=== PATIENT | female | born 1980 ===

== ENCOUNTER 2018-11-29 17:56 | Emergency (ER) | payer OTHER, MEDICAID ==
[2018-11-29 17:56] VITALS: BMI 25.3
[2018-11-29] MEDS ORDERED: Sodium Chloride 0.9% 1,000 ML IV STA (19:43)
--- NOTE | 2018-11-29 19:55 | ED PDOC ---
HPI: Back Time Seen by Provider: 11/29/18 19:14 Chief Complaint (Nursing): Back Pain History Per: Patient Additional Complaint(s): Pt. states since Sunday she's had dysuria (at the end of micturition), hesitancy, frequency associated with suprapubic pain and b/l flank pain radiating to her "belt area." Pt. states she took AZO today with mild relief in symptoms. Further reports having a "kidney stone" in 2005 which required surgery but resolved spontaneously. Also reports having tactile fever. She was initially taking Ibuprofen for pain but has not taken any meds today except for AZO. Denies hematuria, incontinence, trauma, N/V/D. Past Medical History Reviewed: Historical Data, Nursing Documentation, Vital Signs Vital Signs: Last Vital Signs Temp 99.9 F H 11/29/18 18:37 Pulse 110 H 11/29/18 18:37 Resp 17 11/29/18 18:37 BP 131/77 11/29/18 18:37 Pulse Ox 97 11/29/18 18:37 - Medical History PMH: Anemia, Bronchitis Denies: Chronic Kidney Disease - Surgical History Surgical History: (x3) - Family History Family History: States: No Known Family Hx - Home Medications Home Medications: Ambulatory Orders Medication Instructions Recorded Ferrous Sulfate [Feosol] 325 mg PO BID #60 tab 10/21/15 oxyCODONE/Acetaminophen [Percocet 1 tab PO Q4 PRN #15 tab 10/21/15 5/325 mg Tab] Cetirizine HCl [Zyrtec Allergy] 10 mg PO DAILY #15 sgl 03/08/16 Prednisone 3 tab PO DAILY #12 tablet 03/08/16 Ibuprofen [Motrin Tab] 800 mg PO Q6 PRN #12 tab 11/30/18 Sulfamethoxazole/Trimethoprim 1 tab PO BID #14 tab 11/30/18 [Bactrim DS 800 mg-160 mg] - Allergies Allergies/Adverse Reactions: Allergies Allergy/AdvReac Type Severity Reaction Status Date / Time dog dander Allergy SHORTNESS Verified 11/29/18 18:40 OF BREATH Review of Systems ROS Statement: Except As Marked, All Systems Reviewed And Found Negative Constitutional: Positive for: Fever, Chills Musculoskeletal: Positive for: Back Pain Physical Exam - Physical Exam Appears: Positive for: Well, Non-toxic, No Acute Distress Skin: Positive for: Normal Color, Warm. Negative for: Rash Eye Exam: Positive for: Normal appearance Cardiovascular/Chest: Positive for: Regular Rate, Rhythm Respiratory: Positive for: Normal Breath Sounds Gastrointestinal/Abdominal: Positive for: Normal Exam, Bowel Sounds, Soft. Negative for: Tenderness, Guarding Back: Positive for: Normal Inspection, L CVA Tenderness, R CVA Tenderness. Negative for: Vertebral Tenderness Neurologic/Psych: Positive for: Alert, Oriented (x3) - Laboratory Results Result Diagrams: 11/29/18 21:00 11/29/18 21:00 - ECG O2 Sat by Pulse Oximetry: 97 - Progress ED Course And Treament: Labs, toradol 30mg IV, IV NS bolus x 1, zofran 4mg IV ordered. [address] abd/pelvis w/o contrast, rocephin 1gm IV ordered. 2143 On re-evaluation, pt. reports good pain improvement but still present. Informed of results and agrees with plan and care. Medical Decision Making Medical Decision Making: Time: 2245 CT FINDINGS: LUNG BASES: The lung bases appear clear. No pleural effusions are seen. LIVER: Unremarkable. GALLBLADDER AND BILE DUCTS: The gallbladder appears within normal limits. No radioopaque gallstones are seen. No biliary ductal dilatation is evident. PANCREAS: Unremarkable. SPLEEN: Unremarkable. ADRENAL GLANDS: Unremarkable. KIDNEYS, URETERS, AND BLADDER: A 7.4 mm hyperdense lesion arises from the posterior upper left renal pole. The kidneys otherwise appear within normal limits. There is no hydronephrosis or hydroureter. No urinary calculi are seen. The urinary bladder is normal in size and configuration. STOMACH AND BOWEL: Unremarkable appearance of the stomach and bowel. No evidence of bowel obstruction. No evidence suggesting enteritis or colitis. APPENDIX: No evidence of acute appendicitis on CT examination. PERITONEUM: No free fluid. No free air. A small umbilical hernia is present which contains fat. LYMPH NODES: No lymphadenopathy is evident. REPRODUCTIVE: Unremarkable as visualized. VASCULATURE: No evidence of abdominal aortic aneurysm. BONES: No aggressive appearing osseous lesion. No acute osseous pathology evident. IMPRESSION: 1. No acute intra-abdominal or pelvic abnormality. 2. A 7.4 mm hyperdense lesion arises from the posterior upper left renal pole most compatible with a hemorrhagic cyst. 3. A small umbilical hernia is present which contains fat. Case d/w Dr. Guerrero who agrees with plan and care. Pt. informed of plan and results. States she is feeling much better. Reports pain has completely resolved. Advised to f/u with Dr. Cowan (urologist) for further evaluation but is to return to ED immediately if symptoms worsen. Disposition - Clinical Impression Clinical Impression: UTI (urinary tract infection), Hemorrhage of cyst of tangirnaq kidney - Patient ED Disposition Is Patient to be Admitted: No - Disposition Referrals: [facility] [Outside] Brandon Cowan MD [Medical Doctor] - Disposition: Routine/Home Disposition Time: 22:50 Condition: IMPROVED Additional Instructions: FOLLOW UP WITH DR. COWAN FOR FURTHER EVALUATION RETURN TO ED IMMEDIATELY IF SYMPTOMS WORSEN OPAL [facility]RI[facility]IAN[facility], thank you for letting us take care of you today. Your provider was Jossie Guerrero MD and you were treated for BACK PAIN, PAIN DURING URINATION. The emergency medical care you received today was directed at your acute symptoms. If you were prescribed any medication, please fill it and take as directed. It may take several days for your symptoms to resolve. Return to the Emergency Department if your symptoms worsen, do not improve, or if you have any other problems. Please contact your doctor or call one of the physicians/clinics you have been referred to that are listed on the Patient Visit Information form that is included in your discharge packet. Bring any paperwork you were given at discharge with you along with any medications you are taking to your follow up visit. Our treatment cannot replace ongoing medical care by a primary care provider outside of the emergency department. Thank you for allowing the [facility] team to be part of your care today. If you had an X-Ray or CT scan: A Radiologist will review the ED reading if any change in treatment is needed we will contact you. If you had a blood, urine, or wound culture: It will take several days for the results, if any change in treatment is needed we will contact you. If you had an STI test: It will take 48 hours for the results. Please call after 1 week if you have not heard back. Prescriptions: Ibuprofen [Motrin Tab] 800 mg PO Q6 PRN #12 tab PRN Reason: fever or pain Sulfamethoxazole/Trimethoprim [Bactrim DS 800 mg-160 mg] 1 tab PO BID #14 tab Instructions: Urinary Tract Infection, Adult (DC) Forms: [employer] ([place]atian)
[2018-11-29 21:07] LABS: BASO # 0.1 K/uL (0.0-0.2); BASO % 0.5 % (0.0-2.0); EOS # 0.1 K/uL (0.0-0.7); EOS % 0.5 % (0.0-4.0); HEMOGLOBIN 10.6 g/dL (12.0-16.0); LYMPH # 1.4 K/uL (1.0-4.3); LYMPH % 12.6 % (20.0-40.0); MEAN CELL VOLUME 72.2 fl (81.0-99.0); MEAN CORPUSCULAR HEMOGLOBIN 23.3 pg (27.0-31.0); MEAN CORPUSCULAR HGB CONC 32.2 g/dL (33.0-37.0); MEAN PLATELET VOLUME 9.5 fl (7.2-11.7); MONO # 0.6 K/uL (0.0-0.8); MONO % 5.2 % (0.0-10.0); NEUT # 9.2 K/uL (1.8-7.0); NEUT % 81.2 % (50.0-75.0); RBC 4.57 Mil/uL (3.80-5.20); RED CELL DISTRIBUTION WIDTH 15.7 % (11.5-14.5); WHITE BLOOD COUNT 11.4 K/uL (4.8-10.8)
[2018-11-29 21:12] LABS: SQUAMOUS EPITHIAL 4 /hpf (0-5); URINE BACTERIA RARE (<OCC); URINE BILIRUBIN NEGATIVE (NEGATIVE); URINE BLOOD MODERATE (NEGATIVE); URINE CLARITY CLOUDY (Clear); URINE GLUCOSE (UA) NEG (NEGATIVE); URINE LEUKOCYTE ESTERASE LARGE Leu/uL (Negative); URINE PROTEIN 100 mg/dL (NEGATIVE); URINE UROBILINOGEN 0.2-1.0 mg/dL (0.2-1.0); WBC CLUMPS MOD /hpf
[2018-11-29 21:18] LABS: VENOUS BLOOD GAS PCO2 42 mmHg (40-60); VENOUS BLOOD GAS PO2 26 mm/Hg (30-55)
[2018-11-29 21:25] LABS: ALB/GLOB RATIO 1.3 (1.0-2.1); ALBUMIN 4.2 g/dL (3.5-5.0); ALT/SGPT 18 U/L (9-52); AST/SGOT 19 U/L (14-36); BLOOD UREA NITROGEN 11 mg/dl (7-17); CALCIUM 9.3 mg/dL (8.4-10.2); GFR NON-AFRICAN AMERICAN > 60
[2018-11-29 21:28] LABS: URINE COLOR YELLOW (YELLOW)
[2018-11-30] MEDS ORDERED: cefTRIAXone (Rocephin) 1 gm Inj ONE (00:07)
[2018-11-30 00:22] VITALS: PULSE 83; RESP 18
[2018-11-30 02:07] VITALS: BP 100/76; TEMP 98.3; O2SAT 100
--- NOTE | 2018-11-30 10:12 | CT ---
Date of service: 11/29/2018 PROCEDURE: CT Abdomen and Pelvis without intravenous contrast HISTORY: b/l flank pain COMPARISON: None. TECHNIQUE: Contiguous images were obtained from the domes of the diaphragms to the upper thighs without the administration of intravenous contrast. Oral contrast was not administered. Radiation dose: Total exam DLP = 599.91 mGy-cm. This CT exam was performed using one or more of the following dose reduction techniques: Automated exposure control, adjustment of the mA and/or kV according to patient size, and/or use of iterative reconstruction technique. FINDINGS: LOWER THORAX: Unremarkable. LIVER: Unremarkable. No gross lesion or ductal dilatation. GALLBLADDER AND BILE DUCTS: Unremarkable. PANCREAS: Unremarkable. No gross lesion or ductal dilatation. SPLEEN: Unremarkable. ADRENALS: Unremarkable. No mass. KIDNEYS AND URETERS: Tiny 7 mm hyperdense structure in the posterior left upper pole. No hydronephrosis. No solid mass. VASCULATURE: Unremarkable. No aortic aneurysm. No aortic atherosclerotic calcification or mural plaque present. BOWEL: Unremarkable. No obstruction. No gross mural thickening. APPENDIX: Unremarkable. Normal appendix. PERITONEUM: Unremarkable. No free fluid. No free air. LYMPH NODES: Unremarkable. No enlarged lymph nodes. BLADDER: Unremarkable. REPRODUCTIVE: Unremarkable. BONES: No acute fracture. OTHER FINDINGS: None. IMPRESSION: Unremarkable non contrast enhanced CT of the abdomen and pelvis.
== END 2018-11-30 02:05 | disposition home or self-care (01) ==
LOC: H.ER 17:56
DX: N39.0 Urinary tract infection, site not specified (principal); N28.1 Cyst of kidney, acquired; K42.9 Umbilical hernia without obstruction or gangrene; N20.0 Calculus of kidney
CPT/HCPCS: 74176; 80053; 81003; 81025; 82803; 85025; 87040; 87086; 87181; 96361; 96365; 96375; 99284; J0696; J1885; J7030